=== PATIENT | female | born 1985 | race African-American/Black ===

== ENCOUNTER → 2017-06-07 | Outpatient (CLI) | payer MEDICAID ==
[~2017-06-07] MED LIST: PREN1CAP7 PO; TERC0.4C2 VAGINAL
== END ==
LOC: HPND 08:25
PROVIDERS: ATTEND Obstetrics & Gynecology
DX: O35.1XX0 Maternal care for (suspected) chromosomal abnormality in fetus, not applicable or unspecified (principal); O45.8X2 Other premature separation of placenta, second trimester; O40.2XX0 Polyhydramnios, second trimester, not applicable or unspecified; O09.32 Supervision of pregnancy with insufficient antenatal care, second trimester; Z3A.27 27 weeks gestation of pregnancy
CPT/HCPCS: 76811